=== PATIENT | female | born 1955 | race Caucasian/White ===

== ENCOUNTER 2020-11-25 18:03 | Inpatient (IN) | payer OTHER ==
[~2020-11-25] VITALS: Ht 170.2 cm; Wt 84.5 kg
[2020-11-25] MEDS ORDERED: ACETAMINOPHEN 500 MG TAB PO ONE (18:15)
[2020-11-25] MEDS ORDERED: METOPROLOL TARTRATE 1MG/1ML-5ML VIAL IV SCH (19:00)
[2020-11-25] MEDS ORDERED: cefTRIAXone 1GM/50ML D5W 50 ML IV ONE (19:00)
[2020-11-25] MEDS ORDERED: methylPREDNISolone SOD SUCC 125 MG/2 ML VL IV ONE (19:00)
[2020-11-25 19:01] LABS: Basophils # (auto) 0.1 10 ^3/uL (0-0.2); Basophils % (auto) 0.6 % (0.0-2.0); Eosinophils # (auto) 0.2 10 ^3/uL (0-0.8); Eosinophils % (auto) 1.1 % (0.0-7.0); Hematocrit 45.5 % (36.0-46.0); Hemoglobin 15.6 g/dL (12.2-16.2); Lymphocytes # (auto) 0.9 10 ^3/uL (0.4-5.4); Lymphocytes % (auto) 4.2 % (10.0-50.0); Mean Corpuscular Hemoglobin 32.1 pg (28.0-32.0); Mean Corpuscular Hgb Conc. 34.4 g/dL (32.0-36.0); Mean Corpuscular Volume 93.5 fL (80.0-100.0); Monocytes # (auto) 1.9 10 ^3/uL (0-1.3); Neutrophils # (auto) 18.4 10 ^3/uL (1.6-8.6); Neutrophils % (auto) 85.1 % (37.0-80.0); Platelet Count (auto) 213 10^3/uL (140-450); Red Blood Cells 4.86 10^6/uL (4.0-5.20); Red Cell Distribution Width 14.9 % (11.8-14.3); White Blood Cell 21.7 10^3/uL (4.4-10.8)
[2020-11-25] MEDS ORDERED: LEVALBUTEROL HCL 1.25 MG/3 ML NEB ONE (19:08)
[2020-11-25] MEDS ORDERED: IPRATROPIUM BROM 0.5 MG/2.5ML INH SOL ONE (19:15)
[2020-11-25 19:17] LABS: Albumin 3.6 g/dL (3.4-5.0); Anion Gap 6 (5-15); Blood Urea Nitrogen 12 mg/dL (7-18); Calcium 8.5 mg/dL (8.5-10.1); Carbon Dioxide 24 mmol/L (21-32); Chloride 105 mmol/L (98-107); Glucose 112 mg/dL (74-106); Magnesium 1.8 mg/dL (1.6-2.6); Potassium 3.8 mmol/L (3.5-5.1); Sodium 135 mmol/L (136-145)
[2020-11-25 19:23] LABS: Alanine Aminotransferase 28 U/L (13-56); Alkaline Phosphatase 124 U/L (45-117); Aspartate Aminotransferase 9 U/L (15-37); BUN/Creatinine Ratio 16.9; Bilirubin, Total 0.5 mg/dL (0.2-1.0); GFR African American 107 mL/min; GFR Non-African American 88 mL/min; Total Protein 7.4 g/dL (6.4-8.2)
[2020-11-25] MEDS ORDERED: LEVALBUTEROL HCL 1.25 MG/3 ML NEB NEB ONE (19:30)
[2020-11-25] MEDS ORDERED: IPRATROPIUM BROM 0.5 MG/2.5ML INH SOL NEB ONE (19:30)
[2020-11-25] MEDS ORDERED: LORazepam 2MG/ML-1ML VIAL IV ONE (20:00)
[2020-11-25] MEDS: DOXYCYCLINE 100MG/250ML 250 ML IV SCH (22:45)
[2020-11-25] MEDS ORDERED: NITROGLYCERIN 0.4 MG SL TAB SL PRN (22:45)
[2020-11-25] MEDS ORDERED: ACETAMINOPHEN 325 MG TAB PO PRN (22:45)
[2020-11-25] MEDS ORDERED: HYDROcodone-ACET 5/325MG TAB PO PRN (22:45)
[2020-11-25] MEDS ORDERED: ONDANSETRON HCL 4 MG/2 ML VIAL IV PRN (22:45)
[2020-11-25] MEDS ORDERED: MORPHINE SULF INJ 2 MG/ML SYRINGE 1ML IV PRN (22:45)
[2020-11-25 23:13] VITALS: BP 115/69
[2020-11-26] MEDS ORDERED: LEVALBUTEROL HCL 1.25 MG/3 ML NEB NEB SCH
[2020-11-26] MEDS: SODIUM CHLOR 0.9% PF (SALINE LOCK) 10ML VIAL/SYR IV SCH ×3 (04:08→23:07)
[2020-11-26] MEDS: methylPREDNISolone SOD SUCC 40 MG/ML VL IV SCH ×3 (05:07→23:07)
[2020-11-26] MEDS: LEVALBUTEROL HCL 1.25 MG/3 ML NEB NEB SCH ×4 (06:00→19:12)
[2020-11-26] MEDS: IPRATROPIUM BROM 0.5 MG/2.5ML INH SOL NEB SCH ×3 (06:00→19:12)
[2020-11-26 06:05] LABS: Basophils # (auto) 0 10 ^3/uL (0-0.2); Basophils % (auto) 0.2 % (0.0-2.0); Eosinophils # (auto) 0 10 ^3/uL (0-0.8); Hematocrit 43.6 % (36.0-46.0); Hemoglobin 14.7 g/dL (12.2-16.2); Lymphocytes # (auto) 0.6 10 ^3/uL (0.4-5.4); Lymphocytes % (auto) 2.6 % (10.0-50.0); Mean Corpuscular Hemoglobin 31.8 pg (28.0-32.0); Mean Corpuscular Hgb Conc. 33.7 g/dL (32.0-36.0); Mean Corpuscular Volume 94.2 fL (80.0-100.0); Monocytes # (auto) 1.1 10 ^3/uL (0-1.3); Monocytes % (auto) 4.2 % (0.0-12.0); Neutrophils # (auto) 23.1 10 ^3/uL (1.6-8.6); Nucleated Red Blood Cells % 0.1 %; Platelet Count (auto) 185 10^3/uL (140-450); Red Blood Cells 4.63 10^6/uL (4.0-5.20); Red Cell Distribution Width 14.6 % (11.8-14.3); White Blood Cell 24.9 10^3/uL (4.4-10.8)
[2020-11-26 06:21] LABS: Albumin 3.1 g/dL (3.4-5.0); Potassium 3.9 mmol/L (3.5-5.1)
[2020-11-26 06:26] LABS: BUN/Creatinine Ratio 18.2; Bilirubin, Total 0.4 mg/dL (0.2-1.0); Calcium 9.2 mg/dL (8.5-10.1); Total Protein 6.6 g/dL (6.4-8.2)
[2020-11-26] MEDS: cefTRIAXone 1GM/50ML D5W 50 ML IV SCH (08:30)
[2020-11-26] MEDS: DOXYCYCLINE 100MG/250ML 250 ML IV SCH ×2 (10:20→23:09)
[2020-11-26] MEDS: MULTIPLE VITAMIN TAB PO SCH (10:20)
[2020-11-26] MEDS: FAMOTIDINE (10MG/ML) 2ML VL IV SCH ×2 (10:20→23:07)
[2020-11-26] MEDS: ZINC SULFATE 220mg CAP or TAB PO SCH (10:20)
[2020-11-26] MEDS: ASCORBIC ACID 500 MG TAB PO SCH ×2 (10:20→23:09)
[2020-11-26] MEDS: ENOXAPARIN SOD 40 MG/0.4 ML SYRINGE SC SCH (10:20)
[2020-11-26] MEDS: METOPROLOL TARTRATE 50 MG TAB PO SCH ×2 (10:22→23:08)
[2020-11-26] MEDS ORDERED: CLON0.5T PO (11:17)
[2020-11-26] MEDS ORDERED: PRA1C PO (11:17)
[2020-11-26] MEDS ORDERED: LAMO150T26 PO (11:17)
[2020-11-26] MEDS ORDERED: CITA-73 PO (11:17)
[2020-11-26] MEDS ORDERED: AMIT150T PO (11:17)
[2020-11-26] MEDS ORDERED: ALPR0.5T PO (11:17)
[2020-11-26] MEDS ORDERED: clonazePAM 0.5 MG TAB PO PRN ×2 (12:00→22:00)
[2020-11-26] MEDS ORDERED: ALPRAZolam 0.5 MG TAB PO PRN (12:00)
[2020-11-26] MEDS ORDERED: ALPRAZolam 0.5 MG TAB ONE (14:42)
[2020-11-26] MEDS ORDERED: ALPRAZolam 0.5 MG TAB PO ONE (15:00)
[2020-11-26] MEDS ORDERED: PRAZ2CAP2 PO (15:43)
[2020-11-26] MEDS ORDERED: ALPR1TAB7 PO (15:43)
[2020-11-26 16:19] VITALS: BP 114/71
[2020-11-26] MEDS: AMITRIPTYLINE HCL 25 MG TAB PO SCH (18:02)
[2020-11-26 22:00] VITALS: BP 116/73
[2020-11-26] MEDS: PRAZOSIN HCL 1 MG CAP PO SCH (22:00)
[2020-11-26] MEDS: lamoTRIgine 100 MG TAB PO SCH (23:08)
[2020-11-27 05:00] VITALS: BP 127/82
[2020-11-27] MEDS: SODIUM CHLOR 0.9% PF (SALINE LOCK) 10ML VIAL/SYR IV SCH ×3 (05:41→22:47)
[2020-11-27] MEDS: methylPREDNISolone SOD SUCC 40 MG/ML VL IV SCH ×3 (05:42→22:47)
[2020-11-27] MEDS: IPRATROPIUM BROM 0.5 MG/2.5ML INH SOL NEB SCH ×3 (06:38→18:00)
[2020-11-27] MEDS: LEVALBUTEROL HCL 1.25 MG/3 ML NEB NEB SCH ×3 (06:38→18:00)
[2020-11-27] MEDS ORDERED: ALPRAZolam 0.5 MG TAB PO PRN (07:00)
[2020-11-27 08:00] VITALS: BP 100/62
[2020-11-27 09:00] VITALS: BP 124/80
[2020-11-27] MEDS: cefTRIAXone 1GM/50ML D5W 50 ML IV SCH (09:14)
[2020-11-27] MEDS: METOPROLOL TARTRATE 50 MG TAB PO SCH ×2 (09:14→22:47)
[2020-11-27] MEDS: CITALOPRAM HYDROBR 20 MG TAB PO SCH (09:14)
[2020-11-27] MEDS: lamoTRIgine 100 MG TAB PO SCH ×2 (09:15→22:47)
[2020-11-27] MEDS: FAMOTIDINE (10MG/ML) 2ML VL IV SCH ×2 (09:15→22:47)
[2020-11-27] MEDS: ZINC SULFATE 220mg CAP or TAB PO SCH (09:15)
[2020-11-27] MEDS: MULTIPLE VITAMIN TAB PO SCH (09:15)
[2020-11-27] MEDS: ENOXAPARIN SOD 40 MG/0.4 ML SYRINGE SC SCH (09:16)
[2020-11-27] MEDS: PRAZOSIN HCL 1 MG CAP PO SCH ×2 (09:16→22:00)
[2020-11-27] MEDS: ASCORBIC ACID 500 MG TAB PO SCH ×2 (09:16→22:48)
[2020-11-27] MEDS: DOXYCYCLINE 100MG/250ML 250 ML IV SCH ×2 (10:56→22:48)
[2020-11-27 12:37] VITALS: BP 119/79
[2020-11-27 16:52] VITALS: BP 124/74
[2020-11-27] MEDS: AMITRIPTYLINE HCL 25 MG TAB PO SCH (17:55)
[2020-11-27 22:00] VITALS: BP 137/76
[2020-11-28 05:00] VITALS: BP 136/76
[2020-11-28] MEDS: SODIUM CHLOR 0.9% PF (SALINE LOCK) 10ML VIAL/SYR IV SCH ×3 (05:53→22:00)
[2020-11-28] MEDS: methylPREDNISolone SOD SUCC 40 MG/ML VL IV SCH ×3 (05:54→22:00)
[2020-11-28 06:37] LABS: Basophils # (auto) 0 10 ^3/uL (0-0.2); Basophils % (auto) 0.2 % (0.0-2.0); Eosinophils # (auto) 0 10 ^3/uL (0-0.8); Hematocrit 42.9 % (36.0-46.0); Hemoglobin 14.2 g/dL (12.2-16.2); Lymphocytes # (auto) 1.3 10 ^3/uL (0.4-5.4); Lymphocytes % (auto) 7.3 % (10.0-50.0); Mean Corpuscular Hemoglobin 31.6 pg (28.0-32.0); Mean Corpuscular Hgb Conc. 33.1 g/dL (32.0-36.0); Mean Corpuscular Volume 95.5 fL (80.0-100.0); Monocytes # (auto) 1.4 10 ^3/uL (0-1.3); Monocytes % (auto) 7.7 % (0.0-12.0); Neutrophils # (auto) 15.1 10 ^3/uL (1.6-8.6); Neutrophils % (auto) 84.8 % (37.0-80.0); Platelet Count (auto) 252 10^3/uL (140-450); Red Blood Cells 4.49 10^6/uL (4.0-5.20); Red Cell Distribution Width 15.2 % (11.8-14.3); White Blood Cell 17.8 10^3/uL (4.4-10.8)
[2020-11-28] MEDS: LEVALBUTEROL HCL 1.25 MG/3 ML NEB NEB SCH ×3 (06:50→19:01)
[2020-11-28] MEDS: IPRATROPIUM BROM 0.5 MG/2.5ML INH SOL NEB SCH ×3 (06:50→19:01)
[2020-11-28 09:00] VITALS: BP 132/78
[2020-11-28] MEDS: FAMOTIDINE (10MG/ML) 2ML VL IV SCH ×2 (10:54→22:00)
[2020-11-28] MEDS: ZINC SULFATE 220mg CAP or TAB PO SCH (10:54)
[2020-11-28] MEDS: CITALOPRAM HYDROBR 20 MG TAB PO SCH (10:54)
[2020-11-28] MEDS: lamoTRIgine 100 MG TAB PO SCH ×2 (10:54→22:00)
[2020-11-28] MEDS: cefTRIAXone 1GM/50ML D5W 50 ML IV SCH (10:54)
[2020-11-28] MEDS: ASCORBIC ACID 500 MG TAB PO SCH ×2 (10:55→22:00)
[2020-11-28] MEDS: PRAZOSIN HCL 1 MG CAP PO SCH ×2 (10:55→23:00)
[2020-11-28] MEDS: METOPROLOL TARTRATE 50 MG TAB PO SCH ×2 (10:55→22:00)
[2020-11-28] MEDS: MULTIPLE VITAMIN TAB PO SCH (10:55)
[2020-11-28] MEDS: DOXYCYCLINE 100MG/250ML 250 ML IV SCH ×2 (10:56→22:45)
[2020-11-28] MEDS: ENOXAPARIN SOD 40 MG/0.4 ML SYRINGE SC SCH (10:56)
[2020-11-28] MEDS: NICOTINE 14 MG/24HR TOPICAL PATCH TD SCH (10:56)
[2020-11-28 13:00] VITALS: BP 124/77
[2020-11-28 16:54] VITALS: BP 134/85
[2020-11-28] MEDS: AMITRIPTYLINE HCL 25 MG TAB PO SCH (18:00)
[2020-11-28 21:07] VITALS: BP 134/85
[2020-11-28 22:00] VITALS: BP 141/85
[2020-11-29 05:00] VITALS: BP 113/70
[2020-11-29] MEDS: SODIUM CHLOR 0.9% PF (SALINE LOCK) 10ML VIAL/SYR IV SCH ×3 (06:39→22:18)
[2020-11-29] MEDS: methylPREDNISolone SOD SUCC 40 MG/ML VL IV SCH ×3 (06:39→22:19)
[2020-11-29] MEDS: IPRATROPIUM BROM 0.5 MG/2.5ML INH SOL NEB SCH ×3 (06:42→18:48)
[2020-11-29] MEDS: LEVALBUTEROL HCL 1.25 MG/3 ML NEB NEB SCH ×3 (06:42→18:49)
[2020-11-29 09:00] VITALS: BP 119/78
[2020-11-29] MEDS: cefTRIAXone 1GM/50ML D5W 50 ML IV SCH (10:16)
[2020-11-29] MEDS: ZINC SULFATE 220mg CAP or TAB PO SCH (10:17)
[2020-11-29] MEDS: lamoTRIgine 100 MG TAB PO SCH ×2 (10:17→22:20)
[2020-11-29] MEDS: FAMOTIDINE (10MG/ML) 2ML VL IV SCH ×2 (10:17→22:18)
[2020-11-29] MEDS: CITALOPRAM HYDROBR 20 MG TAB PO SCH (10:17)
[2020-11-29] MEDS: PRAZOSIN HCL 1 MG CAP PO SCH ×2 (10:17→22:27)
[2020-11-29] MEDS: DOXYCYCLINE 100MG/250ML 250 ML IV SCH (10:18)
[2020-11-29] MEDS: MULTIPLE VITAMIN TAB PO SCH (10:18)
[2020-11-29] MEDS: NICOTINE 14 MG/24HR TOPICAL PATCH TD SCH (10:18)
[2020-11-29] MEDS: ASCORBIC ACID 500 MG TAB PO SCH ×2 (10:18→22:28)
[2020-11-29] MEDS: ENOXAPARIN SOD 40 MG/0.4 ML SYRINGE SC SCH (10:18)
[2020-11-29] MEDS: METOPROLOL TARTRATE 50 MG TAB PO SCH ×2 (10:19→22:27)
[2020-11-29 13:00] VITALS: BP 124/64
[2020-11-29 16:49] VITALS: BP 131/72
[2020-11-29] MEDS: AMITRIPTYLINE HCL 25 MG TAB PO SCH (17:26)
[2020-11-29 22:00] VITALS: BP 146/87
[2020-11-29] MEDS: DOXYCYCLINE 100 MG TAB/CAP PO SCH (22:28)
[2020-11-30 05:00] VITALS: BP 132/88
[2020-11-30] MEDS: SODIUM CHLOR 0.9% PF (SALINE LOCK) 10ML VIAL/SYR IV SCH ×3 (06:00→22:11)
[2020-11-30] MEDS: methylPREDNISolone SOD SUCC 40 MG/ML VL IV SCH ×3 (06:38→22:11)
[2020-11-30 09:00] VITALS: BP 133/93
[2020-11-30] MEDS: IPRATROPIUM BROM 0.5 MG/2.5ML INH SOL NEB SCH ×3 (09:49→19:03)
[2020-11-30] MEDS: LEVALBUTEROL HCL 1.25 MG/3 ML NEB NEB SCH ×3 (09:49→19:03)
[2020-11-30] MEDS: cefTRIAXone 1GM/50ML D5W 50 ML IV SCH (10:08)
[2020-11-30] MEDS: ZINC SULFATE 220mg CAP or TAB PO SCH (10:09)
[2020-11-30] MEDS: CITALOPRAM HYDROBR 20 MG TAB PO SCH (10:09)
[2020-11-30] MEDS: ENOXAPARIN SOD 40 MG/0.4 ML SYRINGE SC SCH (10:09)
[2020-11-30] MEDS: lamoTRIgine 100 MG TAB PO SCH ×2 (10:09→22:12)
[2020-11-30] MEDS: FAMOTIDINE (10MG/ML) 2ML VL IV SCH ×2 (10:09→22:10)
[2020-11-30] MEDS: NICOTINE 14 MG/24HR TOPICAL PATCH TD SCH (10:10)
[2020-11-30] MEDS: DOXYCYCLINE 100 MG TAB/CAP PO SCH ×2 (10:10→22:15)
[2020-11-30] MEDS: ASCORBIC ACID 500 MG TAB PO SCH ×2 (10:10→22:14)
[2020-11-30] MEDS: MULTIPLE VITAMIN TAB PO SCH (10:10)
[2020-11-30] MEDS: PRAZOSIN HCL 1 MG CAP PO SCH ×2 (10:11→22:33)
[2020-11-30] MEDS: METOPROLOL TARTRATE 50 MG TAB PO SCH ×2 (10:12→22:13)
[2020-11-30 13:00] VITALS: BP 116/80
[2020-11-30 17:00] VITALS: BP 138/75
[2020-11-30] MEDS: AMITRIPTYLINE HCL 25 MG TAB PO SCH (18:03)
[2020-11-30 20:00] VITALS: BP 132/86
[2020-11-30 22:00] VITALS: BP 132/86
[2020-12-01 05:00] VITALS: BP 123/72
[2020-12-01] MEDS: methylPREDNISolone SOD SUCC 40 MG/ML VL IV SCH (05:40)
[2020-12-01] MEDS: SODIUM CHLOR 0.9% PF (SALINE LOCK) 10ML VIAL/SYR IV SCH (05:40)
[2020-12-01] MEDS: IPRATROPIUM BROM 0.5 MG/2.5ML INH SOL NEB SCH ×2 (07:12→11:28)
[2020-12-01] MEDS: LEVALBUTEROL HCL 1.25 MG/3 ML NEB NEB SCH ×2 (07:12→11:28)
[2020-12-01 09:00] VITALS: BP 127/71
[2020-12-01] MEDS: ZINC SULFATE 220mg CAP or TAB PO SCH (10:21)
[2020-12-01] MEDS: lamoTRIgine 100 MG TAB PO SCH (10:21)
[2020-12-01] MEDS: cefTRIAXone 1GM/50ML D5W 50 ML IV SCH (10:21)
[2020-12-01] MEDS: FAMOTIDINE (10MG/ML) 2ML VL IV SCH (10:21)
[2020-12-01] MEDS: CITALOPRAM HYDROBR 20 MG TAB PO SCH (10:21)
[2020-12-01] MEDS: PRAZOSIN HCL 1 MG CAP PO SCH (10:22)
[2020-12-01] MEDS: METOPROLOL TARTRATE 50 MG TAB PO SCH (10:22)
[2020-12-01] MEDS: MULTIPLE VITAMIN TAB PO SCH (10:23)
[2020-12-01] MEDS: DOXYCYCLINE 100 MG TAB/CAP PO SCH (10:23)
[2020-12-01] MEDS: ENOXAPARIN SOD 40 MG/0.4 ML SYRINGE SC SCH (10:23)
[2020-12-01] MEDS: ASCORBIC ACID 500 MG TAB PO SCH (10:23)
[2020-12-01] MEDS: NICOTINE 14 MG/24HR TOPICAL PATCH TD SCH (10:24)
[2020-12-01 13:00] VITALS: BP 131/77
[2020-12-01 13:03] VITALS: BP 131/77
== END 2020-12-01 14:21 | disposition home or self-care (01) | DRG 871 ==
LOC: ER 18:06 → TELE 18:07 → TELE-CENTR 11-26 15:27
PROVIDERS: ADMIT Nurse Practitioner Family; ATTEND Family Medicine
DX: A41.9 Sepsis, unspecified organism (principal); J96.20 Acute and chronic respiratory failure, unspecified whether with hypoxia or hypercapnia; J18.9 Pneumonia, unspecified organism; J44.1 Chronic obstructive pulmonary disease with (acute) exacerbation; J98.11 Atelectasis; J45.901 Unspecified asthma with (acute) exacerbation; J44.0 Chronic obstructive pulmonary disease with (acute) lower respiratory infection; I50.9 Heart failure, unspecified; F32.9 Major depressive disorder, single episode, unspecified; F41.9 Anxiety disorder, unspecified; F17.210 Nicotine dependence, cigarettes, uncomplicated; I11.0 Hypertensive heart disease with heart failure; Z20.822 Contact with and (suspected) exposure to COVID-19; Z82.49 Family history of ischemic heart disease and other diseases of the circulatory system; Z83.3 Family history of diabetes mellitus; Z82.5 Family history of asthma and other chronic lower respiratory diseases; Z90.710 Acquired absence of both cervix and uterus; Z71.6 Tobacco abuse counseling; Z88.1 Allergy status to other antibiotic agents; Z88.8 Allergy status to other drugs, medicaments and biological substances
CPT/HCPCS: 36415; 36600; 71045; 80053; 82728; 82805; 83036; 83605; 83735; 83880; 84443; 84484; 85025; 86141; 87040; 87426; 93005; 93306; 94640; 96365; 96375; 99291; G0378; J0696; J3490

== ENCOUNTER → 2020-12-25 | Outpatient (CLI) | payer OTHER ==
[~2020-12-25] MED LIST: ALPR1TAB7 PO; AMIT150T PO; CITA-73 PO; CLON0.5T PO; LAMO150T26 PO; PRAZ2CAP2 PO
[2020-12-25 10:45] LABS: Basophils # (auto) 0.1 10 ^3/uL (0-0.2); Basophils % (auto) 0.9 % (0.0-2.0); Eosinophils # (auto) 0.1 10 ^3/uL (0-0.8); Eosinophils % (auto) 2.2 % (0.0-7.0); Hematocrit 44.5 % (36.0-46.0); Hemoglobin 15.6 g/dL (12.2-16.2); Lymphocytes # (auto) 1.5 10 ^3/uL (0.4-5.4); Mean Corpuscular Hemoglobin 33.2 pg (28.0-32.0); Mean Corpuscular Hgb Conc. 35.2 g/dL (32.0-36.0); Mean Corpuscular Volume 94.3 fL (80.0-100.0); Monocytes # (auto) 0.5 10 ^3/uL (0-1.3); Monocytes % (auto) 7.5 % (0.0-12.0); Neutrophils # (auto) 4.6 10 ^3/uL (1.6-8.6); Neutrophils % (auto) 67.4 % (37.0-80.0); Nucleated Red Blood Cells % 0.3 %; Platelet Count (auto) 232 10^3/uL (140-450); Red Blood Cells 4.71 10^6/uL (4.0-5.20); Red Cell Distribution Width 15.7 % (11.8-14.3); White Blood Cell 6.8 10^3/uL (4.4-10.8)
[2020-12-25 10:58] LABS: Urine Bacteria NONE SEEN /hpf (None Seen); Urine Blood Negative /uL (Negative); Urine Mucus FEW (None Seen); Urine Specific Gravity 1.026 (1.001-1.035); Urine WBC 1 /hpf (0 - 5)
[2020-12-25 11:30] LABS: Potassium 4.4 mmol/L (3.5-5.1)
[2020-12-25 11:38] LABS: Albumin 3.6 g/dL (3.4-5.0); BUN/Creatinine Ratio 15.9; Bilirubin, Total 0.4 mg/dL (0.2-1.0); Calcium 9.1 mg/dL (8.5-10.1)
== END | disposition home or self-care (01) ==
LOC: LAB 10:24
PROVIDERS: ATTEND Student in an Organized Health Care Education/Training Program
DX: I10 Essential (primary) hypertension (principal); R73.9 Hyperglycemia, unspecified
CPT/HCPCS: 36415; 80053; 80061; 81001; 83036; 84443; 85025

== ENCOUNTER 2021-02-05 14:11 | Inpatient (IN) | payer OTHER ==
[~2021-02-05] VITALS: Ht 170.2 cm; Wt 82.7 kg
[~2021-02-05 14:11] MED LIST changes: -AMIT150T PO; +AMIT150T3 PO
[2021-02-05] MEDS ORDERED: ALBUTEROL SULF 2.5 MG/0.5ML(0.5%) NEB SOLN HHN ONE (14:30)
[2021-02-05] MEDS ORDERED: methylPREDNISolone SOD SUCC 125 MG/2 ML VL IV ONE (14:30)
[2021-02-05 15:14] LABS: Basophils # (auto) 0.1 10 ^3/uL (0-0.2); Basophils % (auto) 1.3 % (0.0-2.0); Eosinophils % (auto) 8.8 % (0.0-7.0); Hematocrit 47.1 % (36.0-46.0); Lymphocytes # (auto) 2.6 10 ^3/uL (0.4-5.4); Lymphocytes % (auto) 22.5 % (10.0-50.0); Mean Corpuscular Hemoglobin 33.3 pg (28.0-32.0); Mean Corpuscular Volume 98.1 fL (80.0-100.0); Monocytes # (auto) 1.3 10 ^3/uL (0-1.3); Monocytes % (auto) 11.1 % (0.0-12.0); Neutrophils # (auto) 6.4 10 ^3/uL (1.6-8.6); Neutrophils % (auto) 56.3 % (37.0-80.0); Red Cell Distribution Width 17.2 % (11.8-14.3); White Blood Cell 11.4 10^3/uL (4.4-10.8)
[2021-02-05 15:29] LABS: Alanine Aminotransferase 23 U/L (13-56); Anion Gap 5 (5-15); Blood Urea Nitrogen 10 mg/dL (7-18); Calcium 9.3 mg/dL (8.5-10.1); Carbon Dioxide 31 mmol/L (21-32); Chloride 104 mmol/L (98-107); Glucose 106 mg/dL (74-106); Magnesium 2.5 mg/dL (1.6-2.6); Potassium 3.6 mmol/L (3.5-5.1); Sodium 140 mmol/L (136-145)
[2021-02-05 15:34] LABS: Alkaline Phosphatase 127 U/L (45-117); Aspartate Aminotransferase 13 U/L (15-37); BUN/Creatinine Ratio 13.7; Bilirubin, Total 0.4 mg/dL (0.2-1.0); GFR African American 103 mL/min; GFR Non-African American 85 mL/min; Total Protein 7.3 g/dL (6.4-8.2)
[2021-02-05] MEDS ORDERED: MORPHINE SULFATE INJECTION 2 MG/ML SYRG IV PRN (17:45)
[2021-02-05] MEDS ORDERED: NITROGLYCERIN 0.4 MG SL TAB SL PRN (17:45)
[2021-02-05] MEDS ORDERED: IPRATROPIUM BROM 0.5 MG/2.5ML INH SOL NEB PRN (19:30)
[2021-02-05] MEDS ORDERED: AZITHROMYCIN 500MG/ 250ML 250 ML IV ONE (19:30)
[2021-02-05] MEDS ORDERED: ALBUTEROL SULF 2.5 MG/0.5ML(0.5%) NEB SOLN NEB PRN (19:30)
[2021-02-05 22:47] VITALS: BP 122/78
[2021-02-05] MEDS ORDERED: TEMAZEPAM 15 MG CAP PO PRN (23:00)
[2021-02-06] VITALS (7 sets, daily range): BP systolic 115–141; BP diastolic 78–98
[2021-02-06] MEDS ORDERED: PROP10TA57 PO (01:23)
[2021-02-06] MEDS ORDERED: ATOR10TA52 PO (01:23)
[2021-02-06] MEDS ORDERED: APIX5TAB PO (01:23)
[2021-02-06] MEDS ORDERED: NITROGLYCERIN 0.4 MG SL TAB SL PRN (05:15)
[2021-02-06] MEDS ORDERED: DOCUSATE SOD 100 MG CAP PO PRN (05:15)
[2021-02-06] MEDS ORDERED: ONDANSETRON HCL 4 MG/2 ML VIAL IV PRN (05:15)
[2021-02-06] MEDS ORDERED: HYDROcodone-ACET 5/325MG TAB PO PRN (05:15)
[2021-02-06] MEDS ORDERED: ACETAMINOPHEN 325 MG TAB PO PRN (05:15)
[2021-02-06] MEDS ORDERED: ALUM & MAG HYDROX-SIMETH LIQ(MAALOX) 30 ML PO PRN (05:15)
[2021-02-06] MEDS ORDERED: MORPHINE SULFATE INJECTION 2 MG/ML SYRG IV PRN ×2 (05:15)
[2021-02-06] MEDS: SODIUM CHLOR 0.9% PF (SALINE LOCK) 10ML VIAL/SYR IV SCH ×3 (05:59→21:22)
[2021-02-06] MEDS ORDERED: FUROSEMIDE 20 MG/2 ML VIAL IV SCH (06:00)
[2021-02-06] MEDS ORDERED: methylPREDNISolone SOD SUCC 40 MG/ML VL IV SCH (06:00)
[2021-02-06 06:14] LABS: Basophils # (auto) 0 10 ^3/uL (0-0.2); Basophils % (auto) 0.5 % (0.0-2.0); Eosinophils # (auto) 0 10 ^3/uL (0-0.8); Eosinophils % (auto) 0.1 % (0.0-7.0); Hemoglobin 14.6 g/dL (12.2-16.2); Lymphocytes # (auto) 1.3 10 ^3/uL (0.4-5.4); Lymphocytes % (auto) 15.6 % (10.0-50.0); Mean Corpuscular Hemoglobin 33.8 pg (28.0-32.0); Mean Corpuscular Hgb Conc. 34.8 g/dL (32.0-36.0); Mean Corpuscular Volume 97.3 fL (80.0-100.0); Monocytes # (auto) 0.8 10 ^3/uL (0-1.3); Monocytes % (auto) 10.1 % (0.0-12.0); Neutrophils % (auto) 73.7 % (37.0-80.0); Nucleated Red Blood Cells % 0.1 %; Red Blood Cells 4.31 10^6/uL (4.0-5.20); Red Cell Distribution Width 17.3 % (11.8-14.3); White Blood Cell 8.2 10^3/uL (4.4-10.8)
[2021-02-06 06:21] LABS: INR 1.01 (0.9-1.15); Partial Thromboplastin Time 26.3 sec (23.0-31.2)
[2021-02-06 06:47] LABS: Chloride 107 mmol/L (98-107); Potassium 4.1 mmol/L (3.5-5.1); Sodium 139 mmol/L (136-145)
[2021-02-06 07:07] LABS: Alanine Aminotransferase 19 U/L (13-56); Albumin 3.3 g/dL (3.4-5.0); Alkaline Phosphatase 106 U/L (45-117); Anion Gap 5 (5-15); Aspartate Aminotransferase 12 U/L (15-37); BUN/Creatinine Ratio 17.3; Bilirubin, Total 0.4 mg/dL (0.2-1.0); Blood Urea Nitrogen 9 mg/dL (7-18); Calcium 8.5 mg/dL (8.5-10.1); Carbon Dioxide 27 mmol/L (21-32); Cholesterol 142 mg/dL (< 200); GFR African American 153 mL/min; GFR Non-African American 126 mL/min; Glucose 118 mg/dL (74-106); HDL Cholesterol 76 mg/dL (40-59); LDL Cholesterol 59 mg/dL (< 100); Magnesium 2.2 mg/dL (1.6-2.6); Phosphorus 3.7 mg/dL (2.5-4.90); Total Protein 6.1 g/dL (6.4-8.2); Triglycerides 47 mg/dL (< 150)
[2021-02-06 07:43] LABS: Urine Bacteria NONE SEEN /hpf (None Seen); Urine Blood Negative /uL (Negative); Urine Hyaline Cast FEW /lpf (0 - 2); Urine Mucus FEW (None Seen); Urine Specific Gravity 1.017 (1.001-1.035); Urine WBC 1 /hpf (0 - 5)
[2021-02-06 08:18] LABS: Alcohol, Urine < 3.0 mg/dL (0-10); Amphetamine Screen, Urine NEGATIVE (NEGATIVE); Barbiturate Scree,Urine NEGATIVE (NEGATIVE); Benzodiazephine Screen, Urine NEGATIVE (NEGATIVE); Cannabinoid Screen, Urine NEGATIVE (NEGATIVE); Cocaine Screen, Urine NEGATIVE (NEGATIVE); Opiate Scree,Urine NEGATIVE (NEGATIVE); Phencyclidine Screen, Urine NEGATIVE (NEGATIVE)
[2021-02-06] MEDS ORDERED: POTASSIUM CHL 20 Meq TABLET PO SCH (10:00)
[2021-02-06] MEDS ORDERED: APIXABAN 5 MG TAB PO SCH (10:00)
[2021-02-06] MEDS: levoFLOXacin 750MG 150 ML IV SCH (10:15)
[2021-02-06] MEDS: lamoTRIgine 100 MG TAB PO SCH (10:16)
[2021-02-06] MEDS: CITALOPRAM HYDROBR 20 MG TAB PO SCH (10:16)
[2021-02-06] MEDS: ATENOLOL 25 MG TAB PO SCH ×2 (10:18→21:22)
[2021-02-06] MEDS: PRAZOSIN HCL 1 MG CAP PO SCH ×2 (10:18→21:22)
[2021-02-06] MEDS: NICOTINE 21MG/24 HR TOPICAL PATCH TD SCH (10:19)
[2021-02-06] MEDS ORDERED: CHOLECALCIFEROL (VITD3) 2,000 UNIT CAP/TAB PO ONE (13:15)
[2021-02-06] MEDS: methylPREDNISolone SOD SUCC 40 MG/ML VL IV SCH (17:12)
[2021-02-06] MEDS: IPRATROPIUM BROM 0.5 MG/2.5ML INH SOL NEB SCH (19:51)
[2021-02-06] MEDS: ALBUTEROL SULF 2.5 MG/0.5ML(0.5%) NEB SOLN NEB SCH (19:51)
[2021-02-06] MEDS: BUDESONIDE (INHALATION) 0.5 MG/2 ML NEB NEB SCH (19:52)
[2021-02-06] MEDS: AMITRIPTYLINE HCL 25 MG TAB PO SCH (21:21)
[2021-02-06] MEDS: ATORVASTATIN 20 MG TAB PO SCH (21:21)
[2021-02-07] MEDS: IPRATROPIUM BROM 0.5 MG/2.5ML INH SOL NEB SCH ×4 (00:59→18:51)
[2021-02-07] MEDS: ALBUTEROL SULF 2.5 MG/0.5ML(0.5%) NEB SOLN NEB SCH ×4 (00:59→18:51)
[2021-02-07 04:50] VITALS: BP 105/67
[2021-02-07] MEDS: SODIUM CHLOR 0.9% PF (SALINE LOCK) 10ML VIAL/SYR IV SCH ×3 (05:35→21:45)
[2021-02-07] MEDS: methylPREDNISolone SOD SUCC 40 MG/ML VL IV SCH ×2 (05:35→18:47)
[2021-02-07 06:13] LABS: BUN/Creatinine Ratio 17.6; Calcium 8.4 mg/dL (8.5-10.1); Potassium 4.3 mmol/L (3.5-5.1)
[2021-02-07] MEDS: BUDESONIDE (INHALATION) 0.5 MG/2 ML NEB NEB SCH ×2 (06:32→18:51)
[2021-02-07 08:42] VITALS: BP 114/73
[2021-02-07] MEDS ORDERED: FUROSEMIDE 40 MG/4 ML VIAL IV SCH (10:00)
[2021-02-07] MEDS: ASPirin-EC 81 mg tab PO SCH (10:20)
[2021-02-07] MEDS: CHOLECALCIFEROL (VITD3) 2,000 UNIT CAP/TAB PO SCH (10:21)
[2021-02-07] MEDS: lamoTRIgine 100 MG TAB PO SCH (10:21)
[2021-02-07] MEDS: CITALOPRAM HYDROBR 20 MG TAB PO SCH (10:21)
[2021-02-07] MEDS: ATENOLOL 25 MG TAB PO SCH ×2 (10:22→21:45)
[2021-02-07] MEDS: PRAZOSIN HCL 1 MG CAP PO SCH ×2 (10:23→21:44)
[2021-02-07] MEDS: levoFLOXacin 750MG 150 ML IV SCH (10:23)
[2021-02-07] MEDS: NICOTINE 21MG/24 HR TOPICAL PATCH TD SCH (10:26)
[2021-02-07 13:00] VITALS: BP 114/73
[2021-02-07 17:00] VITALS: BP 106/68
[2021-02-07] MEDS: ATORVASTATIN 20 MG TAB PO SCH (21:43)
[2021-02-07] MEDS: DOXYCYCLINE 100 MG TAB/CAP PO SCH (21:43)
[2021-02-07] MEDS: AMITRIPTYLINE HCL 25 MG TAB PO SCH (21:44)
[2021-02-07 21:45] VITALS: BP 120/71
[2021-02-08] MEDS: ALBUTEROL SULF 2.5 MG/0.5ML(0.5%) NEB SOLN NEB SCH ×5 (00:09→23:49)
[2021-02-08] MEDS: IPRATROPIUM BROM 0.5 MG/2.5ML INH SOL NEB SCH ×5 (00:09→23:49)
[2021-02-08 05:00] VITALS: BP 125/80
[2021-02-08] MEDS: SODIUM CHLOR 0.9% PF (SALINE LOCK) 10ML VIAL/SYR IV SCH ×3 (06:01→22:00)
[2021-02-08] MEDS: methylPREDNISolone SOD SUCC 40 MG/ML VL IV SCH ×2 (06:01→17:13)
[2021-02-08] MEDS: BUDESONIDE (INHALATION) 0.5 MG/2 ML NEB NEB SCH ×2 (07:49→18:17)
[2021-02-08] MEDS: ASPirin-EC 81 mg tab PO SCH (08:32)
[2021-02-08] MEDS: CITALOPRAM HYDROBR 20 MG TAB PO SCH (08:32)
[2021-02-08] MEDS: PRAZOSIN HCL 1 MG CAP PO SCH ×2 (08:33→22:01)
[2021-02-08] MEDS: lamoTRIgine 100 MG TAB PO SCH (08:33)
[2021-02-08] MEDS: ATENOLOL 25 MG TAB PO SCH ×2 (08:34→22:02)
[2021-02-08] MEDS: DOXYCYCLINE 100 MG TAB/CAP PO SCH ×2 (08:37→22:02)
[2021-02-08] MEDS: CHOLECALCIFEROL (VITD3) 2,000 UNIT CAP/TAB PO SCH (08:37)
[2021-02-08 08:40] VITALS: BP 102/68
[2021-02-08] MEDS: NICOTINE 21MG/24 HR TOPICAL PATCH TD SCH (10:17)
[2021-02-08] MEDS ORDERED: DOX100T PO (11:16)
[2021-02-08] MEDS ORDERED: PANT40TA2 PO (11:16)
[2021-02-08] MEDS ORDERED: LEVA1NEB5 NEB (11:16)
[2021-02-08] MEDS ORDERED: CHOL1CAP47 PO (11:16)
[2021-02-08] MEDS ORDERED: ASPI-543 PO (11:16)
[2021-02-08] MEDS ORDERED: PRED20TA2 PO (11:16)
[2021-02-08] MEDS ORDERED: IPR002IS NEB (11:16)
[2021-02-08] MEDS ORDERED: ATEN25TA PO (11:16)
[2021-02-08 12:30] VITALS: BP 143/96
[2021-02-08 16:44] VITALS: BP 123/68
[2021-02-08 19:11] VITALS: BP 123/68
[2021-02-08 22:00] VITALS: BP 133/83
[2021-02-08] MEDS: ATORVASTATIN 20 MG TAB PO SCH (22:01)
[2021-02-08] MEDS: AMITRIPTYLINE HCL 25 MG TAB PO SCH (22:17)
[2021-02-09 05:00] VITALS: BP 132/81
[2021-02-09] MEDS: SODIUM CHLOR 0.9% PF (SALINE LOCK) 10ML VIAL/SYR IV SCH ×2 (05:27→14:00)
[2021-02-09] MEDS: methylPREDNISolone SOD SUCC 40 MG/ML VL IV SCH (05:27)
[2021-02-09] MEDS: BUDESONIDE (INHALATION) 0.5 MG/2 ML NEB NEB SCH (05:40)
[2021-02-09] MEDS: IPRATROPIUM BROM 0.5 MG/2.5ML INH SOL NEB SCH ×2 (05:40→11:44)
[2021-02-09] MEDS: ALBUTEROL SULF 2.5 MG/0.5ML(0.5%) NEB SOLN NEB SCH ×2 (05:40→11:44)
[2021-02-09] MEDS: ASPirin-EC 81 mg tab PO SCH (07:43)
[2021-02-09] MEDS: lamoTRIgine 100 MG TAB PO SCH (07:43)
[2021-02-09] MEDS: CITALOPRAM HYDROBR 20 MG TAB PO SCH (07:43)
[2021-02-09] MEDS: NICOTINE 21MG/24 HR TOPICAL PATCH TD SCH (07:44)
[2021-02-09] MEDS: DOXYCYCLINE 100 MG TAB/CAP PO SCH (07:44)
[2021-02-09] MEDS: CHOLECALCIFEROL (VITD3) 2,000 UNIT CAP/TAB PO SCH (07:44)
[2021-02-09 08:30] VITALS: BP 107/71
[2021-02-09 08:38] VITALS: BP 125/84
[2021-02-09] MEDS: ATENOLOL 25 MG TAB PO SCH (10:00)
[2021-02-09 10:53] VITALS: BP 125/84
[2021-02-09] MEDS: PRAZOSIN HCL 1 MG CAP PO SCH (11:59)
== END 2021-02-09 14:40 | disposition home or self-care (01) | DRG 190 ==
LOC: ER 14:11 → TELE 17:41 → TELE-WESTW 20:46 → WEST WING 02-07 10:58
PROVIDERS: ADMIT Hospitalist; ATTEND Internal Medicine
DX: J44.1 Chronic obstructive pulmonary disease with (acute) exacerbation (principal); J96.21 Acute and chronic respiratory failure with hypoxia; I50.22 Chronic systolic (congestive) heart failure; F43.10 Post-traumatic stress disorder, unspecified; E66.9 Obesity, unspecified; F32.9 Major depressive disorder, single episode, unspecified; E78.5 Hyperlipidemia, unspecified; Z68.27 Body mass index [BMI] 27.0-27.9, adult; E55.9 Vitamin D deficiency, unspecified; I11.0 Hypertensive heart disease with heart failure; F17.210 Nicotine dependence, cigarettes, uncomplicated; Z79.82 Long term (current) use of aspirin; Z79.01 Long term (current) use of anticoagulants; Z87.01 Personal history of pneumonia (recurrent); Z90.710 Acquired absence of both cervix and uterus; Z82.49 Family history of ischemic heart disease and other diseases of the circulatory system; Z83.3 Family history of diabetes mellitus; Z79.899 Other long term (current) drug therapy; Z88.1 Allergy status to other antibiotic agents; Z20.822 Contact with and (suspected) exposure to COVID-19; Z86.718 Personal history of other venous thrombosis and embolism
CPT/HCPCS: 36415; 36600; 71045; 80048; 80053; 80061; 80307; 81001; 82306; 82805; 83036; 83605; 83735; 83880; 84100; 84443; 84484; 85025; 85379; 85610; 85730; 87040; 87086; 87426; 93005; 94640; 94644; 96365; 96375; 99291; G0378; J1956

== ENCOUNTER 2021-05-07 13:54 | Inpatient (IN) | payer OTHER ==
[~2021-05-07] VITALS: Ht 170.2 cm; Wt 92.2 kg
[~2021-05-07 13:54] MED LIST changes: +AMIT150T PO; -AMIT150T3 PO; +ASPI-543 PO; +ATEN25TA PO; +ATOR10TA52 PO; +CHOL1CAP47 PO; +DOX100T PO; +IPR002IS NEB; +LEVA1NEB5 NEB; +PANT40TA2 PO; +PRED20TA2 PO
[2021-05-07] MEDS ORDERED: methylPREDNISolone SOD SUCC 125 MG/2 ML VL IV ONE (14:30)
[2021-05-07 14:53] LABS: Basophils # (auto) 0.1 10 ^3/uL (0-0.2); Basophils % (auto) 1.1 % (0.0-2.0); Eosinophils # (auto) 1.2 10 ^3/uL (0-0.8); Eosinophils % (auto) 12.5 % (0.0-7.0); Hematocrit 44.9 % (36.0-46.0); Lymphocytes # (auto) 2.1 10 ^3/uL (0.4-5.4); Lymphocytes % (auto) 22.1 % (10.0-50.0); Mean Corpuscular Hemoglobin 30.8 pg (28.0-32.0); Mean Corpuscular Hgb Conc. 33.3 g/dL (32.0-36.0); Mean Corpuscular Volume 92.3 fL (80.0-100.0); Monocytes # (auto) 0.9 10 ^3/uL (0-1.3); Monocytes % (auto) 9.7 % (0.0-12.0); Neutrophils # (auto) 5.2 10 ^3/uL (1.6-8.6); Neutrophils % (auto) 54.6 % (37.0-80.0); Nucleated Red Blood Cells % 0.1 %; Red Blood Cells 4.86 10^6/uL (4.0-5.20); Red Cell Distribution Width 13.8 % (11.8-14.3); White Blood Cell 9.4 10^3/uL (4.4-10.8)
[2021-05-07 15:08] LABS: Albumin 3.5 g/dL (3.4-5.0); Anion Gap 4 (5-15); Blood Urea Nitrogen 12 mg/dL (7-18); Calcium 8.6 mg/dL (8.5-10.1); Carbon Dioxide 27 mmol/L (21-32); Chloride 108 mmol/L (98-107); Glucose 98 mg/dL (74-106); Potassium 4.1 mmol/L (3.5-5.1); Sodium 139 mmol/L (136-145)
[2021-05-07 15:13] LABS: Alanine Aminotransferase 47 U/L (13-56); Alkaline Phosphatase 144 U/L (45-117); Aspartate Aminotransferase 28 U/L (15-37); BUN/Creatinine Ratio 19.7; Bilirubin, Total 0.4 mg/dL (0.2-1.0); GFR African American 127 mL/min; GFR Non-African American 105 mL/min; Total Protein 7.2 g/dL (6.4-8.2)
[2021-05-07] MEDS ORDERED: IPRATROPIUM BROM 0.5 MG/2.5ML INH SOL HHN ONE (18:45)
[2021-05-07] MEDS ORDERED: ALBUTEROL SULF 2.5 MG/0.5ML(0.5%) NEB SOLN HHN ONE (18:45)
[2021-05-07] MEDS ORDERED: ALBUTEROL SULF 2.5 MG/0.5ML(0.5%) NEB SOLN ONE (18:52)
[2021-05-07] MEDS ORDERED: IPRATROPIUM BROM 0.5 MG/2.5ML INH SOL ONE (18:53)
[2021-05-07] MEDS ORDERED: LEVALBUTEROL HCL 1.25 MG/3 ML NEB NEB ONE (19:00)
[2021-05-07] MEDS ORDERED: MORPHINE SULF INJ 2 MG/ML SYRINGE 1ML IV PRN ×2 (19:30)
[2021-05-07] MEDS ORDERED: ONDANSETRON HCL 4 MG/2 ML VIAL IV PRN (19:30)
[2021-05-07] MEDS ORDERED: clonazePAM 0.5 MG TAB PO PRN (19:30)
[2021-05-07] MEDS ORDERED: ACETAMINOPHEN 500 MG TAB PO PRN (19:30)
[2021-05-07] MEDS ORDERED: HYDROcodone-ACET 5/325MG TAB PO PRN (19:30)
[2021-05-07] MEDS ORDERED: NITROGLYCERIN 0.4 MG SL TAB SL PRN (19:30)
[2021-05-07 21:45] LABS: Urine Bacteria NONE SEEN /hpf (None Seen); Urine Blood Negative /uL (Negative); Urine Mucus FEW (None Seen); Urine WBC 4 /hpf (0 - 5)
[2021-05-07] MEDS: methylPREDNISolone SOD SUCC 40 MG/ML VL IV SCH (22:29)
[2021-05-08] VITALS (8 sets, daily range): BP systolic 118–160; BP diastolic 80–105
[2021-05-08] MEDS: BUDESONIDE (INHALATION) 0.5 MG/2 ML NEB NEB SCH ×3 (00:21→19:14)
[2021-05-08] MEDS: IPRATROPIUM BROM 0.5 MG/2.5ML INH SOL NEB SCH ×4 (00:21→19:14)
[2021-05-08] MEDS: LEVALBUTEROL HCL 1.25 MG/3 ML NEB NEB SCH ×4 (00:21→19:15)
[2021-05-08] MEDS: methylPREDNISolone SOD SUCC 40 MG/ML VL IV SCH ×2 (09:04→22:17)
[2021-05-08] MEDS: ASPirin-EC 81 mg tab PO SCH (09:04)
[2021-05-08] MEDS: cefTRIAXone 1GM/50ML D5W 50 ML IV SCH (09:05)
[2021-05-08 09:40] LABS: Basophils # (auto) 0 10 ^3/uL (0-0.2); Basophils % (auto) 0.3 % (0.0-2.0); Eosinophils # (auto) 0 10 ^3/uL (0-0.8); Eosinophils % (auto) 0.1 % (0.0-7.0); Hematocrit 42.9 % (36.0-46.0); Hemoglobin 14.5 g/dL (12.2-16.2); Lymphocytes # (auto) 0.9 10 ^3/uL (0.4-5.4); Lymphocytes % (auto) 12.5 % (10.0-50.0); Mean Corpuscular Hemoglobin 31.3 pg (28.0-32.0); Mean Corpuscular Hgb Conc. 33.9 g/dL (32.0-36.0); Mean Corpuscular Volume 92.3 fL (80.0-100.0); Monocytes # (auto) 0.2 10 ^3/uL (0-1.3); Monocytes % (auto) 2.7 % (0.0-12.0); Neutrophils # (auto) 6.2 10 ^3/uL (1.6-8.6); Neutrophils % (auto) 84.4 % (37.0-80.0); Nucleated Red Blood Cells % 0.1 %; Red Blood Cells 4.65 10^6/uL (4.0-5.20); Red Cell Distribution Width 13.9 % (11.8-14.3); White Blood Cell 7.4 10^3/uL (4.4-10.8)
[2021-05-08 10:01] LABS: Calcium 8.9 mg/dL (8.5-10.1); Potassium 3.7 mmol/L (3.5-5.1)
[2021-05-08 10:03] LABS: BUN/Creatinine Ratio 22.6
[2021-05-08] MEDS: AZITHROMYCIN 500MG/ 250ML 250 ML IV SCH (10:21)
[2021-05-09] VITALS (7 sets, daily range): BP systolic 117–156; BP diastolic 67–96
[2021-05-09] MEDS: IPRATROPIUM BROM 0.5 MG/2.5ML INH SOL NEB SCH ×5 (00:30→23:57)
[2021-05-09] MEDS: LEVALBUTEROL HCL 1.25 MG/3 ML NEB NEB SCH ×5 (00:30→23:57)
[2021-05-09] MEDS ORDERED: LEVALBUTEROL HCL 1.25 MG/3 ML NEB NEB PRN (01:30)
[2021-05-09] MEDS: BUDESONIDE (INHALATION) 0.5 MG/2 ML NEB NEB SCH ×2 (06:06→19:08)
[2021-05-09] MEDS: methylPREDNISolone SOD SUCC 40 MG/ML VL IV SCH ×2 (09:00→21:52)
[2021-05-09] MEDS: cefTRIAXone 1GM/50ML D5W 50 ML IV SCH (09:00)
[2021-05-09] MEDS: ASPirin-EC 81 mg tab PO SCH (09:01)
[2021-05-09] MEDS: AZITHROMYCIN 500MG/ 250ML 250 ML IV SCH (10:14)
[2021-05-10 05:00] VITALS: BP 124/92
[2021-05-10] MEDS: BUDESONIDE (INHALATION) 0.5 MG/2 ML NEB NEB SCH ×2 (07:10→18:54)
[2021-05-10] MEDS: LEVALBUTEROL HCL 1.25 MG/3 ML NEB NEB SCH ×3 (07:10→18:53)
[2021-05-10] MEDS: IPRATROPIUM BROM 0.5 MG/2.5ML INH SOL NEB SCH ×3 (07:10→18:54)
[2021-05-10] MEDS: AZITHROMYCIN 500MG/ 250ML 250 ML IV SCH (08:43)
[2021-05-10] MEDS: cefTRIAXone 1GM/50ML D5W 50 ML IV SCH (08:43)
[2021-05-10] MEDS: ASPirin-EC 81 mg tab PO SCH (08:43)
[2021-05-10] MEDS: methylPREDNISolone SOD SUCC 40 MG/ML VL IV SCH ×2 (08:43→21:14)
[2021-05-10 09:00] VITALS: BP 135/94
[2021-05-10 13:00] VITALS: BP 131/89
[2021-05-10 16:43] VITALS: BP 145/84
[2021-05-10 22:00] VITALS: BP 152/87
[2021-05-11] MEDS: LEVALBUTEROL HCL 1.25 MG/3 ML NEB NEB SCH ×3 (00:25→14:38)
[2021-05-11] MEDS: IPRATROPIUM BROM 0.5 MG/2.5ML INH SOL NEB SCH ×3 (00:25→14:38)
[2021-05-11 05:00] VITALS: BP 141/98
[2021-05-11] MEDS: BUDESONIDE (INHALATION) 0.5 MG/2 ML NEB NEB SCH (08:02)
[2021-05-11 09:00] VITALS: BP 132/99
[2021-05-11] MEDS: ASPirin-EC 81 mg tab PO SCH (09:36)
[2021-05-11] MEDS: cefTRIAXone 1GM/50ML D5W 50 ML IV SCH (09:36)
[2021-05-11] MEDS: AZITHROMYCIN 500MG/ 250ML 250 ML IV SCH (09:36)
[2021-05-11] MEDS: methylPREDNISolone SOD SUCC 40 MG/ML VL IV SCH (09:36)
[2021-05-11 13:00] VITALS: BP 147/92
== END 2021-05-11 17:00 | disposition home or self-care (01) | DRG 193 ==
LOC: ER 13:54 → TELE 19:22 → TELE-CENTR 05-08 03:10
PROVIDERS: ADMIT Nurse Practitioner Acute Care; ATTEND Family Medicine
DX: J18.9 Pneumonia, unspecified organism (principal); J96.01 Acute respiratory failure with hypoxia; J44.1 Chronic obstructive pulmonary disease with (acute) exacerbation; J44.0 Chronic obstructive pulmonary disease with (acute) lower respiratory infection; I10 Essential (primary) hypertension; E78.5 Hyperlipidemia, unspecified; Z20.822 Contact with and (suspected) exposure to COVID-19; F17.210 Nicotine dependence, cigarettes, uncomplicated; Z79.899 Other long term (current) drug therapy; F32.9 Major depressive disorder, single episode, unspecified; F41.9 Anxiety disorder, unspecified; Z82.49 Family history of ischemic heart disease and other diseases of the circulatory system; Z82.5 Family history of asthma and other chronic lower respiratory diseases; Z83.3 Family history of diabetes mellitus; Z90.710 Acquired absence of both cervix and uterus; Z99.81 Dependence on supplemental oxygen; Z88.8 Allergy status to other drugs, medicaments and biological substances
CPT/HCPCS: 36415; 36600; 71045; 80048; 80053; 81001; 82805; 83605; 83880; 84484; 85025; 85379; 87040; 87081; 87426; 93005; 94640; 96374; G0378; J0696

== ENCOUNTER → 2021-12-03 | Outpatient (CLI) | payer MEDICARE, OTHER ==
[~2021-12-03] VITALS: Ht 170.2 cm; Wt 99.8 kg
[~2021-12-03] MED LIST changes: +ADENOSINE 84 MG in GIVE UN-DILUTED 0 ML IV ONE; -AMIT150T PO; +AMIT150T3 PO
[2021-12-03 11:11] VITALS: BP 144/95
== END | disposition home or self-care (01) ==
LOC: XY 09:50
PROVIDERS: ATTEND Internal Medicine
DX: R07.9 Chest pain, unspecified (principal); J44.9 Chronic obstructive pulmonary disease, unspecified
CPT/HCPCS: 78452; 93017; A9500; J0153

== ENCOUNTER → 2022-02-28 | Outpatient (CLI) | payer MEDICARE, OTHER ==
[~2022-02-28] MED LIST changes: -ADENOSINE 84 MG in GIVE UN-DILUTED 0 ML IV ONE
[2022-02-28 16:19] LABS: Basophils # (auto) 0.1 10 ^3/uL (0-0.2); Basophils % (auto) 0.8 % (0.0-2.0); Eosinophils # (auto) 0.2 10 ^3/uL (0-0.8); Hematocrit 40.8 % (36.0-46.0); Hemoglobin 13.9 g/dL (12.2-16.2); Lymphocytes # (auto) 2.3 10 ^3/uL (0.4-5.4); Lymphocytes % (auto) 23.6 % (10.0-50.0); Mean Corpuscular Hemoglobin 31.8 pg (28.0-32.0); Mean Corpuscular Hgb Conc. 34.1 g/dL (32.0-36.0); Mean Corpuscular Volume 93.1 fL (80.0-100.0); Monocytes # (auto) 0.6 10 ^3/uL (0-1.3); Monocytes % (auto) 6.5 % (0.0-12.0); Neutrophils # (auto) 6.7 10 ^3/uL (1.6-8.6); Neutrophils % (auto) 67.1 % (37.0-80.0); Red Blood Cells 4.38 10^6/uL (4.0-5.20); Red Cell Distribution Width 16.6 % (11.8-14.3); White Blood Cell 9.9 10^3/uL (4.4-10.8)
[2022-02-28 16:43] LABS: Urine Bacteria NONE SEEN /hpf (None Seen); Urine Blood Negative /uL (Negative); Urine Hyaline Cast FEW /lpf (0 - 2); Urine Specific Gravity 1.018 (1.001-1.035); Urine WBC 2 /hpf (0 - 5)
[2022-02-28 16:59] LABS: Albumin 3.7 g/dL (3.4-5.0); BUN/Creatinine Ratio 12.8; Calcium 9.3 mg/dL (8.5-10.1); Potassium 4.1 mmol/L (3.5-5.1)
[2022-02-28 17:03] LABS: Bilirubin, Total 0.4 mg/dL (0.2-1.0); Total Protein 7.4 g/dL (6.4-8.2)
== END | disposition home or self-care (01) ==
LOC: LAB 15:43
PROVIDERS: ATTEND Student in an Organized Health Care Education/Training Program
DX: R73.9 Hyperglycemia, unspecified (principal); I10 Essential (primary) hypertension
CPT/HCPCS: 36415; 80053; 80061; 81001; 83036; 84443; 85025

== ENCOUNTER → 2022-04-15 | Outpatient (CLI) | payer MEDICARE, OTHER | END | disposition home or self-care (01) | LOC: XYW 08:58 | PROVIDERS: ATTEND Internal Medicine | DX: I07.1 Rheumatic tricuspid insufficiency (principal); I50.9 Heart failure, unspecified | CPT/HCPCS: 93306 ==

== ENCOUNTER → 2023-05-05 | Outpatient (CLI) | payer OTHER ==
[~2023-05-05] MED LIST changes: -AMIT150T3 PO; +AMIT150T4 PO; +CLON-1003 PO; -CLON0.5T PO
[2023-05-05 09:51] LABS: Basophils # (auto) 0.1 10 ^3/uL (0-0.2); Basophils % (auto) 0.8 % (0.0-2.0); Eosinophils # (auto) 0.1 10 ^3/uL (0-0.8); Eosinophils % (auto) 1.7 % (0.0-7.0); Hematocrit 40.2 % (36.0-46.0); Hemoglobin 13.4 g/dL (12.2-16.2); Lymphocytes # (auto) 1.3 10 ^3/uL (0.4-5.4); Lymphocytes % (auto) 18.3 % (10.0-50.0); Mean Corpuscular Hemoglobin 31.6 pg (28.0-32.0); Mean Corpuscular Hgb Conc. 33.2 g/dL (32.0-36.0); Mean Corpuscular Volume 95.2 fL (80.0-100.0); Monocytes # (auto) 0.8 10 ^3/uL (0-1.3); Monocytes % (auto) 11.4 % (0.0-12.0); Neutrophils # (auto) 4.8 10 ^3/uL (1.6-8.6); Neutrophils % (auto) 67.8 % (37.0-80.0); Red Blood Cells 4.23 10^6/uL (4.0-5.20); Red Cell Distribution Width 18.9 % (11.8-14.3); White Blood Cell 7.1 10^3/uL (4.4-10.8)
[2023-05-05 10:39] LABS: Albumin 3.4 g/dL (3.4-5.0); Calcium 9.2 mg/dL (8.5-10.1); Potassium 3.9 mmol/L (3.5-5.1)
[2023-05-05 10:46] LABS: BUN/Creatinine Ratio 14.6 (10.0-20.0); Bilirubin, Total 0.3 mg/dL (0.2-1.0); Total Protein 6.6 g/dL (6.4-8.2)
== END | disposition home or self-care (01) ==
LOC: LAB 09:21
PROVIDERS: ATTEND Student in an Organized Health Care Education/Training Program
DX: I10 Essential (primary) hypertension (principal); R73.9 Hyperglycemia, unspecified
CPT/HCPCS: 36415; 80053; 80061; 83036; 84443; 85025

== ENCOUNTER → 2024-02-23 | Outpatient (CLI) | payer OTHER ==
[2024-02-23 14:43] LABS: Urine Bacteria None Seen /hpf (None Seen)
[2024-02-23 14:54] LABS: Basophils # (auto) 0.1 10 ^3/uL (0-0.2); Basophils % (auto) 1.2 % (0.0-2.0); Eosinophils # (auto) 0.2 10 ^3/uL (0-0.8); Eosinophils % (auto) 2.2 % (0.0-7.0); Hematocrit 45.2 % (36.0-46.0); Hemoglobin 15.1 g/dL (12.2-16.2); Lymphocytes % (auto) 22.6 % (10.0-50.0); Mean Corpuscular Hemoglobin 31.7 pg (28.0-32.0); Mean Corpuscular Hgb Conc. 33.5 g/dL (32.0-36.0); Mean Corpuscular Volume 94.6 fL (80.0-100.0); Monocytes % (auto) 10.9 % (0.0-12.0); Neutrophils # (auto) 5.7 10 ^3/uL (1.6-8.6); Neutrophils % (auto) 63.1 % (37.0-80.0); Nucleated Red Blood Cells % 0.2 %; Red Blood Cells 4.78 10^6/uL (4.0-5.20); Red Cell Distribution Width 16.3 % (11.8-14.3)
[2024-02-23 14:55] LABS: Urine Blood Negative /uL (Negative); Urine Clarity Clear (Clear); Urine Color Light-Yellow (Yellow); Urine Protein, UAD Negative (Negative); Urine Specific Gravity 1.009 (1.001-1.035); Urine Urobilinogen Normal (Negative); Urine WBC 2 /hpf (0 - 5); Urine pH 6.5 (5.0-9.0)
[2024-02-23 15:27] LABS: Alanine Aminotransferase 13 U/L (7-40); Albumin 4.2 g/dL (3.2-4.8); Alkaline Phosphatase 118 U/L (46-116); Anion Gap 4 (5-15); Aspartate Aminotransferase 14 U/L (13-40); BUN/Creatinine Ratio 8.1 (10.0-20.0); Bilirubin, Total 0.4 mg/dL (0.2-1.0); Blood Urea Nitrogen 7 mg/dL (9-23); Calcium 9.9 mg/dL (8.5-10.1); Carbon Dioxide 31 mmol/L (20-30); Chloride 107 mmol/L (98-107); Glucose 91 mg/dL (74-106); Potassium 3.6 mmol/L (3.5-5.1); Sodium 142 mmol/L (136-145)
[2024-02-23 15:28] LABS: Total Protein 6.7 g/dL (5.7-8.2)
== END | disposition home or self-care (01) ==
LOC: LAB 14:31
PROVIDERS: ATTEND Student in an Organized Health Care Education/Training Program
DX: Z12.11 Encounter for screening for malignant neoplasm of colon (principal); I10 Essential (primary) hypertension; R73.9 Hyperglycemia, unspecified
CPT/HCPCS: 36415; 80053; 81001; 83036; 84443; 85025

== ENCOUNTER → 2024-04-29 | Outpatient (CLI) | payer OTHER ==
[2024-04-29 11:47] LABS: Base Excess -2.3 mmol/L (-2.0-2.0)
== END | disposition home or self-care (01) ==
LOC: RT 11:15
PROVIDERS: ATTEND Internal Medicine Pulmonary Disease
DX: R79.81 Abnormal blood-gas level (principal)
CPT/HCPCS: 36600; 82805

== ENCOUNTER → 2024-05-11 | Outpatient (CLI) | payer OTHER ==
[~2024-05-11] MED LIST changes: +ALBUTEROL SULF 2.5 MG/0.5ML(0.5%) NEB SOLN ONE
== END | disposition home or self-care (01) ==
LOC: RT 10:10
PROVIDERS: ATTEND Internal Medicine Pulmonary Disease
DX: R06.02 Shortness of breath (principal); J44.9 Chronic obstructive pulmonary disease, unspecified
CPT/HCPCS: 94060; 94727; 94729

== ENCOUNTER 2024-05-18 14:34 | Inpatient (IN) | payer OTHER ==
[~2024-05-18] VITALS: Ht 170.2 cm; Wt 119.7 kg
[2024-05-18] MEDS: AMITRIPTYLINE HCL 25 MG TAB PO SCH (02:30)
[~2024-05-18 14:34] MED LIST changes: -ALBUTEROL SULF 2.5 MG/0.5ML(0.5%) NEB SOLN ONE
[2024-05-18 15:59] LABS: Basophils # (auto) 0.1 10 ^3/uL (0-0.2); Basophils % (auto) 0.9 % (0.0-2.0); Eosinophils # (auto) 0.1 10 ^3/uL (0-0.8); Eosinophils % (auto) 1.3 % (0.0-7.0); Hematocrit 41.9 % (36.0-46.0); Hemoglobin 14.4 g/dL (12.2-16.2); Lymphocytes # (auto) 1.7 10 ^3/uL (0.4-5.4); Lymphocytes % (auto) 20.7 % (10.0-50.0); Mean Corpuscular Hemoglobin 32.2 pg (28.0-32.0); Mean Corpuscular Hgb Conc. 34.4 g/dL (32.0-36.0); Mean Corpuscular Volume 93.6 fL (80.0-100.0); Monocytes # (auto) 0.7 10 ^3/uL (0-1.3); Monocytes % (auto) 8.5 % (0.0-12.0); Neutrophils # (auto) 5.8 10 ^3/uL (1.6-8.6); Neutrophils % (auto) 68.6 % (37.0-80.0); Nucleated Red Blood Cells % 0.1 %; Red Blood Cells 4.47 10^6/uL (4.0-5.20); Red Cell Distribution Width 16.6 % (11.8-14.3); White Blood Cell 8.4 10^3/uL (4.4-10.8)
[2024-05-18 16:02] LABS: Chloride 107 mmol/L (98-107); Potassium 3.3 mmol/L (3.5-5.1); Sodium 142 mmol/L (136-145)
[2024-05-18 16:03] LABS: Anion Gap 6 (5-15); Calcium 9.3 mg/dL (8.7-10.4); Carbon Dioxide 29 mmol/L (20-30)
[2024-05-18 16:09] LABS: BUN/Creatinine Ratio 10.8 (10.0-20.0); Blood Urea Nitrogen 8 mg/dL (9-23); Glucose 128 mg/dL (74-106); Magnesium 1.7 mg/dL (1.6-2.6)
[2024-05-18] MEDS: IOHEXOL 350 MG/ML 100ML IJ ONE (18:17)
[2024-05-18] MEDS ORDERED: ACETAMINOPHEN 325 MG TAB PO PRN (21:00)
[2024-05-18] MEDS ORDERED: DOCUSATE SOD 100 MG CAP PO PRN (21:00)
[2024-05-18] MEDS ORDERED: HYDROcodone-ACET 5/325MG TAB PO PRN (21:00)
[2024-05-18] MEDS ORDERED: hydrALAZINE HCL 20 MG/ML VL IV PRN (21:00)
[2024-05-18] MEDS ORDERED: ONDANSETRON HCL 4 MG/2 ML VIAL IV PRN (21:00)
[2024-05-18] MEDS ORDERED: NITROGLYCERIN 0.4 MG SL TAB SL PRN (21:00)
[2024-05-18] MEDS ORDERED: MORPHINE SULFATE INJ 2 MG/ml SYRG IV PRN (21:00)
[2024-05-18] MEDS: ATORVASTATIN 20 MG TAB PO SCH (22:00)
[2024-05-18] MEDS: lamoTRIgine 100 MG TAB PO SCH (22:00)
[2024-05-18] MEDS: methylPREDNISolone SOD SUCC 40 MG/ML VL IV SCH (22:32)
[2024-05-18] MEDS: POTASSIUM CHL 20 Meq TABLET PO ONE (22:34)
[2024-05-18] MEDS: ALPRAZolam 0.5 MG TAB PO SCH (22:34)
[2024-05-18] MEDS: methylPREDNISolone SOD SUCC 125 MG/2 ML VL IM ONE (22:39)
[2024-05-18] MEDS: SODIUM CHLOR 0.9% PF (SALINE LOCK) 10ML VIAL/SYR IV SCH (22:39)
[2024-05-18] MEDS: FAMOTIDINE (10MG/ML) 2ML VL IV SCH (22:50)
[2024-05-19] VITALS (17 sets, daily range): BP systolic 108–138; BP diastolic 61–82; PULSE 63–118; RESP 14–22; TEMP 97.9–98.9; O2SAT 65–100
[2024-05-19 02:05] LABS: Urine Bacteria FEW /hpf (None Seen); Urine Blood Negative /uL (Negative); Urine Clarity Clear (Clear); Urine Color Yellow (Yellow); Urine Mucus FEW (None Seen); Urine Protein, UAD TRACE (Negative); Urine Urobilinogen Normal (Negative); Urine WBC 2 /hpf (0 - 5); Urine pH 5.5 (5.0-9.0)
[2024-05-19 02:08] LABS: Urine Specific Gravity > 1.050 (1.001-1.035)
[2024-05-19] MEDS: LEVALBUTEROL HCL 1.25 MG/3 ML NEB NEB SCH (02:17)
[2024-05-19] MEDS ORDERED: LAMO150T2 PO (04:29)
[2024-05-19] MEDS ORDERED: FLUT1AER17 INH (04:29)
[2024-05-19] MEDS ORDERED: TRAZ-227 PO (04:31)
[2024-05-19] MEDS: IPRATROPIUM BROM 0.5 MG/2.5ML INH SOL NEB PRN (06:05)
[2024-05-19 07:34] LABS: Basophils # (auto) 0 10 ^3/uL (0-0.2); Basophils % (auto) 0.6 % (0.0-2.0); Eosinophils # (auto) 0 10 ^3/uL (0-0.8); Eosinophils % (auto) 0.1 % (0.0-7.0); Hematocrit 41.2 % (36.0-46.0); Hemoglobin 14.2 g/dL (12.2-16.2); Lymphocytes # (auto) 0.7 10 ^3/uL (0.4-5.4); Lymphocytes % (auto) 11.5 % (10.0-50.0); Mean Corpuscular Hemoglobin 32.6 pg (28.0-32.0); Mean Corpuscular Hgb Conc. 34.3 g/dL (32.0-36.0); Monocytes # (auto) 0.1 10 ^3/uL (0-1.3); Monocytes % (auto) 0.9 % (0.0-12.0); Neutrophils # (auto) 5.1 10 ^3/uL (1.6-8.6); Neutrophils % (auto) 86.9 % (37.0-80.0); Nucleated Red Blood Cells % 0.1 %; Red Blood Cells 4.34 10^6/uL (4.0-5.20); Red Cell Distribution Width 16.7 % (11.8-14.3); White Blood Cell 5.9 10^3/uL (4.4-10.8)
[2024-05-19 07:40] LABS: Alanine Aminotransferase 50 U/L (7-40); Alkaline Phosphatase 116 U/L (46-116); Anion Gap 8 (5-15); BUN/Creatinine Ratio 8.9 (10.0-20.0); Blood Urea Nitrogen 8 mg/dL (9-23); Calcium 9.4 mg/dL (8.7-10.4); Carbon Dioxide 25 mmol/L (20-30); Chloride 106 mmol/L (98-107); Glucose 209 mg/dL (74-106); Potassium 3.6 mmol/L (3.5-5.1); Sodium 139 mmol/L (136-145)
[2024-05-19 07:41] LABS: Albumin 3.9 g/dL (3.2-4.8); Aspartate Aminotransferase 21 U/L (13-40)
[2024-05-19 07:42] LABS: Bilirubin, Total 0.5 mg/dL (0.2-1.0); Total Protein 6.1 g/dL (5.7-8.2)
[2024-05-19] MEDS: AZITHROMYCIN 500MG/ 250ML 250 ML IV SCH (09:09)
[2024-05-19] MEDS: ASPirin 81 mg TAB PO SCH (09:46)
[2024-05-19] MEDS: methylPREDNISolone SOD SUCC 40 MG/ML VL IV SCH (10:13)
[2024-05-19 11:56] LABS: Base Excess -2.9 mmol/L (-2.0-2.0)
[2024-05-20] VITALS (13 sets, daily range): BP systolic 101–148; BP diastolic 55–87; PULSE 57–116; RESP 16–20; TEMP 98–98.7; O2SAT 92–100
[2024-05-20 06:48] LABS: Calcium 9.3 mg/dL (8.7-10.4); Chloride 108 mmol/L (98-107); Potassium 3.8 mmol/L (3.5-5.1); Sodium 142 mmol/L (136-145)
[2024-05-20 06:49] LABS: Anion Gap 4 (5-15); Carbon Dioxide 30 mmol/L (20-30)
[2024-05-20 06:54] LABS: BUN/Creatinine Ratio 14.7 (10.0-20.0); Blood Urea Nitrogen 11 mg/dL (9-23); Glucose 183 mg/dL (74-106)
[2024-05-20 07:07] LABS: Basophils # (auto) 0 10 ^3/uL (0-0.2); Basophils % (auto) 0.2 % (0.0-2.0); Eosinophils # (auto) 0 10 ^3/uL (0-0.8); Hematocrit 37.3 % (36.0-46.0); Lymphocytes # (auto) 0.7 10 ^3/uL (0.4-5.4); Lymphocytes % (auto) 7.5 % (10.0-50.0); Mean Corpuscular Hemoglobin 32.9 pg (28.0-32.0); Mean Corpuscular Hgb Conc. 34.9 g/dL (32.0-36.0); Mean Corpuscular Volume 94.3 fL (80.0-100.0); Monocytes # (auto) 0.5 10 ^3/uL (0-1.3); Monocytes % (auto) 5.9 % (0.0-12.0); Neutrophils # (auto) 7.5 10 ^3/uL (1.6-8.6); Neutrophils % (auto) 86.4 % (37.0-80.0); Red Blood Cells 3.96 10^6/uL (4.0-5.20); White Blood Cell 8.7 10^3/uL (4.4-10.8)
[2024-05-20] MEDS ORDERED: AZIT-43 PO (14:05)
[2024-05-20] MEDS ORDERED: PRED20TA2 PO (14:05)
== END 2024-05-20 19:52 | disposition home or self-care (01) | DRG 190 ==
LOC: ER 14:34 → OVERFLOW 21:06 → TELE-CENTR 21:25 → TELE 22:22 → TELE-CENTR 23:02 → CENTRAL 05-19 16:15
PROVIDERS: ADMIT Internal Medicine; ATTEND Internal Medicine
DX: J44.1 Chronic obstructive pulmonary disease with (acute) exacerbation (principal); J96.21 Acute and chronic respiratory failure with hypoxia; E87.6 Hypokalemia; I11.0 Hypertensive heart disease with heart failure; F17.210 Nicotine dependence, cigarettes, uncomplicated; G40.909 Epilepsy, unspecified, not intractable, without status epilepticus; I50.9 Heart failure, unspecified; R91.1 Solitary pulmonary nodule; Z88.1 Allergy status to other antibiotic agents; Z85.3 Personal history of malignant neoplasm of breast; Z90.710 Acquired absence of both cervix and uterus
CPT/HCPCS: 36415; 36600; 71045; 71275; 80048; 80053; 81001; 82607; 82805; 83036; 83735; 83880; 84484; 85025; 85379; 93005; 94640; G0378; J3490

== ENCOUNTER → 2024-07-19 | Outpatient (CLI) | payer OTHER ==
[~2024-07-19] MED LIST changes: +AZIT-43 PO; +FLUT1AER17 INH; +LAMO150T2 PO; +TRAZ-227 PO
[2024-07-19 14:47] LABS: Basophils # (auto) 0.1 10 ^3/uL (0-0.2); Basophils % (auto) 0.8 % (0.0-2.0); Eosinophils # (auto) 0.2 10 ^3/uL (0-0.8); Eosinophils % (auto) 1.6 % (0.0-7.0); Hematocrit 43.7 % (36.0-46.0); Hemoglobin 14.7 g/dL (12.2-16.2); Lymphocytes # (auto) 1.8 10 ^3/uL (0.4-5.4); Lymphocytes % (auto) 19.3 % (10.0-50.0); Mean Corpuscular Hemoglobin 31.6 pg (28.0-32.0); Mean Corpuscular Hgb Conc. 33.6 g/dL (32.0-36.0); Mean Corpuscular Volume 94.2 fL (80.0-100.0); Monocytes % (auto) 10.7 % (0.0-12.0); Neutrophils # (auto) 6.4 10 ^3/uL (1.6-8.6); Neutrophils % (auto) 67.6 % (37.0-80.0); Platelet Count (auto) 222 10^3/uL (140-450); Red Blood Cells 4.65 10^6/uL (4.0-5.20); Red Cell Distribution Width 15.3 % (11.8-14.3); White Blood Cell 9.5 10^3/uL (4.4-10.8)
[2024-07-19 14:57] LABS: Alanine Aminotransferase 22 U/L (7-40); Albumin 4.1 g/dL (3.2-4.8); Alkaline Phosphatase 123 U/L (46-116); Anion Gap 7 (5-15); Aspartate Aminotransferase 15 U/L (13-40); BUN/Creatinine Ratio 13.1 (10.0-20.0); Bilirubin, Total 0.4 mg/dL (0.2-1.0); Blood Urea Nitrogen 11 mg/dL (9-23); Calcium 9.8 mg/dL (8.7-10.4); Carbon Dioxide 25 mmol/L (20-31); Chloride 108 mmol/L (98-107); Glucose 127 mg/dL (74-106); Potassium 4.1 mmol/L (3.5-5.1); Sodium 140 mmol/L (136-145); Total Protein 6.5 g/dL (5.7-8.2)
[2024-07-19 15:05] LABS: CRP High Sensitivity 1.09 mg/dL (<1.0)
[2024-07-19 15:34] LABS: Erythrocyte Sedimentation Rate 10 mm/hr (0-20); Hepatitis B Core Total AB Negative (Negative)
[2024-07-19 15:42] LABS: Hepatitis A Total Antibody Negative (Negative); Hepatitis B Core IgM Negative; Hepatitis B Surface Antibody Negative (Negative); Hepatitis B Surface Antigen Negative (Negative); Hepatitis C Antibody Negative (Negative)
[2024-07-20 08:06] LABS: Rheumatoid Arthritis Factor 10.4 IU/mL (<14.0)
[2024-07-21 14:07] LABS: QuantiFERON-TB Gold Plus Negative (Negative)
== END | disposition home or self-care (01) ==
LOC: LAB 13:48
PROVIDERS: ATTEND Internal Medicine Rheumatology
DX: L40.0 Psoriasis vulgaris (principal)
CPT/HCPCS: 36415; 80053; 85025; 85652; 86141; 86200; 86431; 86703; 86704; 86705; 86706; 86708; 86803; 86812; 87340

== ENCOUNTER → 2025-02-23 | Outpatient (CLI) | payer OTHER ==
[2025-02-23 12:32] LABS: Basophils # (auto) 0.1 10 ^3/uL (0-0.2); Basophils % (auto) 1.1 % (0.0-2.0); Eosinophils # (auto) 0.2 10 ^3/uL (0-0.8); Hematocrit 47.4 % (36.0-46.0); Hemoglobin 15.9 g/dL (12.2-16.2); Lymphocytes # (auto) 1.6 10 ^3/uL (0.4-5.4); Lymphocytes % (auto) 20.4 % (10.0-50.0); Mean Corpuscular Hgb Conc. 33.5 g/dL (32.0-36.0); Mean Corpuscular Volume 95.6 fL (80.0-100.0); Neutrophils # (auto) 5.1 10 ^3/uL (1.6-8.6); Neutrophils % (auto) 63.5 % (37.0-80.0); Nucleated Red Blood Cells % 0.2 %; Platelet Count (auto) 195 10^3/uL (140-450); Red Blood Cells 4.96 10^6/uL (4.0-5.20); Red Cell Distribution Width 18.2 % (11.8-14.3)
[2025-02-23 12:48] LABS: CRP High Sensitivity 0.67 mg/dL (<1.0)
[2025-02-23 13:06] LABS: Erythrocyte Sedimentation Rate 8 mm/hr (0-20)
== END | disposition home or self-care (01) ==
LOC: LAB 12:04
PROVIDERS: ATTEND Internal Medicine Rheumatology
DX: L40.50 Arthropathic psoriasis, unspecified (principal); I50.9 Heart failure, unspecified; J44.9 Chronic obstructive pulmonary disease, unspecified
CPT/HCPCS: 36415; 82565; 84450; 84460; 85025; 85652; 86141

== ENCOUNTER → 2025-05-27 | Outpatient (CLI) | payer OTHER ==
[2025-05-27 14:05] LABS: Hematocrit 48.6 % (36.0-46.0); Hemoglobin 16.3 g/dL (12.2-16.2); Mean Corpuscular Hemoglobin 30.4 pg (28.0-32.0); Mean Corpuscular Volume 90.5 fL (80.0-100.0); Nucleated Red Blood Cells % 0.2 %
[2025-05-27 14:24] LABS: Alanine Aminotransferase 24 U/L (7-40); Anion Gap 10 (5-15); BUN/Creatinine Ratio 10.0 (10.0-20.0); Blood Urea Nitrogen 9 mg/dL (9-23); Calcium 8.9 mg/dL (8.7-10.4); Carbon Dioxide 26 mmol/L (20-31); Chloride 106 mmol/L (98-107); Glucose 97 mg/dL (74-106); Potassium 3.8 mmol/L (3.5-5.1); Sodium 142 mmol/L (136-145); Total Protein 6.8 g/dL (5.7-8.2); Triglycerides 101 mg/dL (< 150)
[2025-05-27 14:25] LABS: Albumin 4.5 g/dL (3.2-4.8); Bilirubin, Total 0.6 mg/dL (0.2-1.0); Cholesterol 179 mg/dL (< 200)
[2025-05-27 14:26] LABS: Alkaline Phosphatase 124 U/L (46-116); HDL Cholesterol 78 mg/dL (40-59)
== END | disposition home or self-care (01) ==
LOC: LAB 13:25
PROVIDERS: ATTEND Student in an Organized Health Care Education/Training Program
DX: I10 Essential (primary) hypertension (principal); R73.9 Hyperglycemia, unspecified; Z12.11 Encounter for screening for malignant neoplasm of colon
CPT/HCPCS: 36415; 80053; 80061; 83036; 84443; 85025; 85652; 86141

== ENCOUNTER 2025-07-12 09:46 | Outpatient (CLI) | payer OTHER ==
[~2025-07-12] VITALS: Ht 170.2 cm; Wt 113.4 kg
[2025-07-12] MEDS: REGADENOSON 0.4 MG/5 ML SYRG IV ONE ×2 (11:41→11:42)
--- NOTE | 2025-07-18 08:57 | DVHSR ---
APPROVED REPORT Exam: Nuclear Stress Test BMI: 0 Stress Test Details Stress Test: Pharmacologic stress testing performed using 0.4 mg of regadenoson per 5 mL given IV ov er 10 seconds. HR Resting HR: 112 bpmMax Heart Rate (APMHR): 152.110466 bpm Max HR Achieved: 150 bpmTarget HR (85% APMHR): 129.541455 bpm % of APMHR: 98.68 Recovery HR: 111 bpm BP Resting BP: 150/99 mmHg Recovery BP: 146/96 mmHg ECG Resting ECG: Sinus Tachycardia Clinical Reason for Termination: Completed protocol Nurse Comments Recieved pt. from [facility]. A/Ox4 on RA. Connected to cardiac cath technician, VS stable. Rt IV flushes well. Reviewed POC. Pt. verbalized understanding of procedure including risks and side effects, agrees for stress testing. Lexiscan stress test performed per protocol. [facility] tech administered Cardiolite. Pt. tolerated well . Pt. stable, no change on exam. VS returned to baseline. Transferred to [facility] via wheelchair w Stress ECG Conclusion lvef 45% normal perfusion scan mild LV dysfunction NM EXAM: Myocardial Perfusion REST/STRESS Imaging Protocol: Rest Tc-99m/Stress Tc-99m 1 day Resting Data Rest SPECT myocardial perfusion imaging was performed in supine position 45 minutes following the int ravenous injection of 10.9 mCi of Tc-99m Sestamibi. Time of rest injection: 10:20 Date: 07/12/2025 Time of rest imagin:05 Date: 07/12/2025 Administration Route: IV Administration Site: Left Arm Pharmacologic Stress Pharmacologic stress test was performed by injecting Regadenoson 0.4 mg IV push followed by the intra venous injection of 32.4 mCi of Tc-99m Sestamibi. Time of stress injection: 11:45 Date: 07/12/2025 Time of stress imagin:45 Date: 07/12/2025 Administration Route: IV Administration Site: Left Arm Gated Stress SPECT was performed 60 minutes after stress injection. The images were gated to evaluate regional wall motion and calculate left ventricular ejection fracti on. Stress only was performed in the Supine position. Nuclear Conclusion Nuclear Findings: negative for ischemia lvef 45% normal perfusion scan mild LV dysfunction
== END 2025-07-12 17:00 | disposition home or self-care (01) ==
LOC: XYW 09:46
PROVIDERS: ATTEND Internal Medicine
DX: R00.0 Tachycardia, unspecified (principal); I51.9 Heart disease, unspecified; R06.02 Shortness of breath
CPT/HCPCS: 78452; 93017; A9500; J2785

== ENCOUNTER 2025-09-06 12:32 | Outpatient (CLI) | payer OTHER ==
--- NOTE | 2025-09-07 18:58 | DVHSR ---
APPROVED REPORT EXAM: Two-dimensional and M-mode echocardiogram with Doppler and color Doppler. INDICATION Dyspnea BRIEF HISTORY COPD RISK FACTORS Obesity: Height: 67, Weight: 250 DIMENSIONS LVDd (3.8-5.7cm) LA (2D) 2.8 (1.9-4.0cm) Aortic Root (2.0-3.7cm) EF (%) 40.0 (55-70%) Rt. Atrium 2.6 (1.9-4.0cm) Asc. Aorta cm Mitral Valve Mitral Mitral Stenosis E wave 1.43m/s MV Mean GR. mmHg E/A ratio 0.0 2D MVA cm2 Aortic Valve Aortic Valve Aortic Stenosis V1 0.88m/s AO Mean GR. 9mmHg V2 1.99m/s AO Peak GR. 16mmHg Tricuspid Valve RVSP 8mmHg Other Information Quality : Technically Limited Rhythm : Technically limited study due to body habitus, tachycardia and COPD. Conclusion Technically good study. Difficult acoustic windows. Sinus rhythm. Limited study. Left atrial enlargement. Mild aortic root enlargement. Valves appear to be structurally normal. EF of 25% with global hypokinesis. RV function is normal. Dopplers suboptimal. There was a moderate pericardial effusion with fibrinoid deposition along the RV free wall best seen in the subcostal views. There does not seem to be impingement upon filling of the right ventricle however there may be questionable filling impediment in the right atrium. Clinical correlation highly recommended. No other masses or vegetations discernible.
== END 2025-09-06 17:00 | disposition home or self-care (01) ==
LOC: XYW 12:32
PROVIDERS: ATTEND Internal Medicine
DX: I08.0 Rheumatic disorders of both mitral and aortic valves (principal); I31.39 Other pericardial effusion (noninflammatory); I51.7 Cardiomegaly; R06.02 Shortness of breath
CPT/HCPCS: 93306